=== PATIENT | male | born 1980 | race Caucasian/White ===

== ENCOUNTER 2019-04-05 18:42 | Emergency (ER) | payer OTHER ==
[2019-04-05 18:56] VITALS: RESP 18
[2019-04-05 19:04] VITALS: BMI 18.2
[2019-04-05] MEDS ORDERED: Sodium Chloride 0.9% 1,000 ML IV ONE (19:42)
--- NOTE | 2019-04-05 19:55 | C.PDOC ---
History Of Present Illness Patient is a 38 year old male who presents to the ED for evaluation of weakness and lightheadedness onset today. Patient states that this morning he woke up and felt like he had a cold with congestion and an upset stomach and lost appetite. He states he feels general malaise and fatigue and reports when he was walking to get his child from school he experienced dizziness and lightheadedness. was with him and reports that he was diaphoretic, shaky, and pale so they gave him orange juice and had him sit down. Patient reports that every time he would try to get up he continued to feel dizzy and weak so they called BLS. Patient was found to have a blood sugar of 87, but vital signs were normal and he was brought here. Patient reports that he feels better now, but is still congested. Time Seen by Provider: 04/05/19 19:35 Chief Complaint (Nursing): Dizziness/Lightheaded History Per: Patient, EMS, Family History/Exam Limitations: no limitations Onset/Duration Of Symptoms: Hrs Current Symptoms Are (Timing): Still Present Recent travel outside of the [place]: No Additional History Per: Patient Past Medical History Reviewed: Historical Data, Nursing Documentation, Vital Signs Vital Signs: Last Vital Signs Temp 98.3 F 04/05/19 18:55 Pulse 81 04/05/19 18:55 Resp 18 04/05/19 18:55 BP 128/90 04/05/19 18:55 Pulse Ox 99 04/05/19 18:55 Primary Care Provider: [facility] - Medical History PMH: No Chronic Diseases Surgical History: No Surg Hx Family History: States: Unknown Family Hx - Social History Hx Tobacco Use: No Hx Alcohol Use: No Hx Substance Use: No - Immunization History Hx Tetanus Toxoid Vaccination: No Hx Influenza Vaccination: Yes (2018) Review Of Systems Constitutional: Positive for: Sweats, Weakness, Malaise. Negative for: Fever ENT: Positive for: Nose Congestion Neurological: Positive for: Dizziness, Other (lightheadedness) Physical Exam - Physical Exam Appears: Non-toxic, No Acute Distress Skin: Warm, Dry Head: Atraumatic, Normacephalic Oral Mucosa: Moist Neck: Normal ROM, Supple Chest: Symmetrical, No Deformity Cardiovascular: Rhythm Regular, No Murmur Respiratory: Normal Breath Sounds, No Rales, No Rhonchi, No Wheezing Gastrointestinal/Abdominal: Soft, No Tenderness, No Distention, No Guarding Neurological/Psych: Oriented x3, Normal Speech, Normal Cognition ED Course And Treatment - Laboratory Results Result Diagrams: 04/05/19 20:24 04/05/19 20:24 Lab Interpretation: Normal ECG: Interpreted By Me ECG Rhythm: Sinus Rhythm ECG Interpretation: Normal O2 Sat by Pulse Oximetry: 99 (on RA) Pulse Ox Interpretation: Normal Reevaluation Time: :22 Reassessment Condition: Improved (Patient is asymptomatic after IV fluids) Medical Decision Making Medical Decision Making: Plan: EKG Labs IV Fluids Disposition Counseled Patient/Family Regarding: Studies Performed, Diagnosis, Need For Followup - Disposition Referrals: [facility] [Outside] Disposition: HOME/ ROUTINE Disposition Time: :22 Condition: IMPROVED Instructions: Weakness (ED), Dizziness, Nonvertigo, (DC), Generalized Weakness Forms: [facility] (Iranian) - Clinical Impression Clinical Impression: Dizziness, Weakness - Scribe Statement The provider has reviewed the documentation as recorded by the Rohan Grubbs All medical record entries made by the Shilpaibalise were at my direction and personally dictated by me. I have reviewed the chart and agree that the record accurately reflects my personal performance of the history, physical exam, medical decision making, and the department course for this patient. I have also personally directed, reviewed, and agree with the discharge instructions and disposition.
[2019-04-05 20:30] LABS: BASO # 0.1 K/uL (0.0-0.2); BASO % 0.6 % (0.0-2.0); EOS # 0.3 K/uL (0.0-0.7); EOS % 3.6 % (0.0-4.0); HEMOGLOBIN 15.1 g/dL (12.0-18.0); LYMPH # 1.2 K/uL (1.0-4.3); LYMPH % 13.1 % (20.0-40.0); MEAN CELL VOLUME 89.1 fL (80.0-94.0); MEAN CORPUSCULAR HEMOGLOBIN 31.7 pg (27.0-31.0); MEAN CORPUSCULAR HGB CONC 35.5 g/dL (33.0-37.0); MONO # 0.8 K/uL (0.0-0.8); MONO % 9.1 % (0.0-10.0); NEUT # 6.8 K/uL (1.8-7.0); NEUT % 73.6 % (50.0-75.0); RBC 4.76 Mil/uL (4.40-5.90); RED CELL DISTRIBUTION WIDTH 12.7 % (11.5-14.5); WHITE BLOOD COUNT 9.2 K/uL (4.8-10.8)
[2019-04-05 20:53] LABS: ALB/GLOB RATIO 1.4 (1.0-2.1); ALBUMIN 4.6 g/dL (3.5-5.0); ALT/SGPT 42 U/L (21-72); AST/SGOT 45 U/L (17-59); BLOOD UREA NITROGEN 9 mg/dL (9-20); CALCIUM 9.4 mg/dl (8.6-10.4); GFR NON-AFRICAN AMERICAN > 60
[2019-04-05 21:16] VITALS: BP 121/76; PULSE 82; TEMP 99.3
[2019-04-05 21:24] VITALS: O2SAT 99
== END 2019-04-05 21:44 | disposition home or self-care (01) ==
LOC: C.ER 18:42
DX: R42 Dizziness and giddiness (principal); R53.1 Weakness
CPT/HCPCS: 80053; 82948; 83735; 85025; 96360; 99285; J7030